=== PATIENT | male | born 1975 | race Caucasian/White ===

== ENCOUNTER 2020-07-02 17:47 | Inpatient (IN) ==
[2020-07-02] MEDS ORDERED: ONDANSETRON 4 MG/2 ML VIAL IV ONE (19:16)
[2020-07-02] MEDS ORDERED: 0.9 % SODIUM CHLORIDE 2,000 ML IV ONE (19:16)
[2020-07-02] MEDS: HYDROmorphone 0.5 MG/0.5 ML SYRINGE IV PRN ×3 (19:42→22:44)
[2020-07-02 20:42] LABS: Basophils # (Auto) 0.04 K/mcL (0.00-0.30); Basophils % (Auto) 0.5 % (0.0-2.0); Eosinophils # (Auto) 0.17 K/mcL (0.00-0.70); Eosinophils % (Auto) 2.1 % (0.0-7.0); Granulocytes % (Auto) 54.7 % (38.0-78.0); Hematocrit 44.1 % (40.1-51.0); Hemoglobin 15.6 g/dL (13.7-17.5); Lymphocytes # (Auto) 2.59 K/mcL (1.50-4.80); Lymphocytes % (Auto) 31.9 % (15.5-49.0); Mean Cell Volume 84.2 fL (80.0-100.0); Mean Corpuscular HGB Conc 35.4 g/dL (31.0-36.0); Mean Platelet Volume 10.5 fL (7.4-10.4); Monocytes # (Auto) 0.88 K/mcL (0.10-0.90); Monocytes % (Auto) 10.8 % (1.0-12.0); Platelet Count 211 K/mcL (140-440); RBC 5.24 M/mcL (4.63-6.08); Red Cell Distribution Width 13.4 % (11.5-14.5); WBC 8.1 K/mcL (4.50-11.00)
[2020-07-02 21:07] LABS: ALT/SGPT 36 U/l (0-40); AST/SGOT 17 U/l (0-37); Albumin/Globulin Ratio 1.6 (1.0-2.3); Alkaline Phosphatase 44 U/L (39-117); Bilirubin,Total 0.3 mg/dL (0.0-1.0); Blood Urea Nitrogen 11 mg/dl (6-20); Calcium 9.1 mg/dl (8.6-10.4); Carbon Dioxide 24 mmol/L (22-30); Chloride 104 mmol/L (96-108); Globulin 2.5 gm/dL (2.2-3.7); Glomerular Filtration Rate 103; Glucose 89 mg/dL (70-105)
[2020-07-02] MEDS ORDERED: 0.9 % SODIUM CHLORIDE 1,000 ML IV ONE (21:39)
--- NOTE | 2020-07-02 22:12 | Emergency Department Note ---
Abdominal Pain HPI General Chief Complaint: Abdominal Pain Stated Complaint: Generalized Abdominal Pain Time Seen by Provider: 07/02/20 18:44 Source: patient Mode of arrival: ambulatory Limitations: no limitations History of Present Illness HPI Narrative: Narrative: This pleasant 44-year-old gentleman comes to the emergency room after being seen yesterday by Dr. whipple here and diagnosed with a mild pancreatitis. He was not nauseated or vomiting and his pain seemed to be controllable. He was able to take fluids at that time. He reports that he was doing better, pain seemed to go away but then came back around noon with an increasing severity of pain. He has had significant nausea but no emesis. He rates his pain 06/11. He only drinks alcohol but rarely his last drink was 2 weeks ago. Related Data Home Medications Medication Instructions Recorded Confirmed atorvastatin 10 mg PO DAILY 07/01/20 07/02/20 cetirizine 10 mg PO DAILY 07/01/20 07/02/20 gabapentin 300 mg capsule 300 mg PO QDAY PRN 07/01/20 07/02/20 hydrochlorothiazide 25 mg PO DAILY 07/01/20 07/02/20 lisinopril 40 mg PO DAILY 07/01/20 07/02/20 omeprazole 20 mg capsule,delayed 20 mg PO QDAY 07/01/20 07/02/20 release Previous Rx's Medication Instructions Recorded oxycodone [Roxicodone] 5 mg PO Q4H PRN #20 tab 07/01/20 Allergies Allergy/AdvReac Type Severity Reaction Status Date / Time hydrocodone Allergy Intermediate Nausea Verified 07/02/20 19:41 meperidine [From Demerol] AdvReac Intermediate Nausea Verified 07/02/20 19:41 From DEMEROL Allergy Unknown Vomiting Uncoded 07/02/20 19:41 Review of Systems ROS ROS Narrative: N arrative: No fevers or chills. No sweats No chest pain A little bit of shortness of breath due to the pain. His diarrhea only continued with one episode today the first time this morning and has not continued but he also has been on some hydrocodone every 4 hours. Was seen for diarrhea at [facility] at [address] [place] [address]. C. difficile test pending. He reports that his pain is worse than yesterday now. His last hydrocodone was a 5 mg around 3:30 PM. Pain is all over the upper half of his abdomen. Sitting up seems to worsen the pain. He is only eaten a muffin today. He has tried to drink a lot of water but he has not urinated that he recalls ev en once today. He does not take any NSAIDs. He did take Excedrin a couple this morning due to headache. He is not on any blood thinners. Has no history of kidney disease. [facility] Narrative Patient History Narrative: Narrative: Medical/Surgical/Family History All Active Problems (Updated 07/02/20 @ 22:29 by Ming Saleh DO) Acute pancreatitis (Acute) Abdominal pain (Acute) Pancreatitis (Acute) Gastroenteritis (Acute) Diarrhea (Acute) Encounter for laboratory testing for COVID-19 virus (Acute) Medical History (Updated 07/02/20 @ 22:29 by Ming Saleh DO) Diarrhea (Acute) Encounter for laboratory testing for COVID-19 virus (Acute) GERD (gastroesophageal reflux disease) (Acute) Hyperlipidemia (Acute) Hypertension (Acute) Social History Smoking Status: Current every day smoker Alcohol Intake Frequency: a few times a month Exam Narrative Narrative: Narrative: General Limitations: no limitations General appearance: Present alert, in distress (Seems to be in quite a bit of discomfort. Laying on his side with some mild consternation. It is not acute but not comfortable.) and nontoxic Head Head: Present atraumatic and normocephalic Eye Eye: Present EOMI Neck Neck: Present trachea midline; Absent lymphadenopathy and thyromegaly Chest Chest: Present symmetric chest wall rise Respiratory Respiratory: Present normal lung sounds bilaterally; Absent respiratory distress, wheezes, stridor, accessory muscle use and prolonged expiratory phase Cardiovascular Cardiovascular: Present regular rate and normal rhythm; Absent tachycardia, systolic murmur and diastolic murmur Adbominal Abdominal: Present soft and tenderness (Moderate-severe epigastric and to the right of the umbilicus.); Absent distention, guarding, rebound, rigidity, organomegaly and mass Extremities Extremities: Present other (Moves all extremities easily and well.) Neurological Neurological: Present alert and oriented X3 Psychiatric Psychiatric: Present serious; Absent depressed, agitated, anxious and poor eye contact Skin Skin: Present warm (WNL) and dry Course Vital Signs Vital signs: Vital Signs Temperature 98.1 F 07/02/20 17:48 Pulse Rate 80 07/02/20 17:48 Respiratory Rate 28 H 07/02/20 17:48 Blood Pressure 150/99 07/02/20 17:48 Pulse Oximetry (%) 97 07/02/20 17:48 Temperature 98.1 F 07/02/20 17:48 Pulse Rate 74 07/02/20 22:03 Respiratory Rate 16 07/02/20 22:03 Blood Pressure 138/80 07/02/20 22:03 Pulse Oximetry (%) 98 07/02/20 22:03 [facility] MDM Narrative Medical decision making narrative: Narrative: Probable acute pancreatitis failing outpatient management of pain. See history and physical by Dr. Whipple from yesterday. (There were 2 charts for the same patient and hopefully these are now combined). Will repeat labs. Will discuss with hospitalist admission for pain control. Labs returned again without an elevation of white count or lactic acid. Potassium slightly low at 3.3. Kidneys are functioning well with BUN 11, creatinine 0.9. Therefore, his admission is primarily for pain control and continued hydration. I will discuss with the hospitalist. I discussed his care with Dr. Contreras, with agreement for patient to be admitted, observation. C. difficile test on stool was found to be negative. 10:20 PM - I had omitted doing an ultrasound. CT was negative but this was did not be as accurate as an ultrasound for looking for cholelithiasis or choledocholithiasis. This is ordered. Lab Data Result diagrams: 07/02/20 19:40 07/02/20 19:40 Labs: Lab Results 07/02/20 07/02/20 07/02/20 Range/Units 19:39 19:40 19:40 WBC 8.1 (4.50-11.00) K/mcL RBC 5.24 (4.63-6.08) M/mcL Hgb 15.6 (13.7-17.5) g/dL Hct 44.1 (40.1-51.0) % MCV 84.2 (80.0-100.0) fL MCH 29.8 (26.0-34.0) pg MCHC 35.4 (31.0-36.0) g/dL RDW 13.4 (11.5-14.5) % Plt Count 211 (140-440) K/mcL MPV 10.5 H (7.4-10.4) fL Gran % 54.7 (38.0-78.0) % Lymph % (Auto) 31.9 (15.5-49.0) % [place] % (Auto) 10.8 (1.0-12.0) % Eos % (Auto) 2.1 (0.0-7.0) % Baso % (Auto) 0.5 (0.0-2.0) % Gran # 4.45 (1.80-8.00) K/mcL Lymph # (Auto) 2.59 (1.50-4.80) K/mcL [place] # (Auto) 0.88 (0.10-0.90) K/mcL Eos # (Auto) 0.17 (0.00-0.70) K/mcL Baso # (Auto) 0.04 (0.00-0.30) K/mcL VBG Lactic Acid 0.8 (0.5-2.0) mmol/L Sodium 140 (133-145) mmol/L Potassium 3.3 (3.3-5.1) mmol/L Chloride 104 (96-108) mmol/L Carbon Dioxide 24 (22-30) mmol/L Anion Gap 12.0 (8-16) BUN 11 (6-20) mg/dl Creatinine 0.9 (0.7-1.2) mg/dl GFR Calculation 103 Glucose 89 (70-105) mg/dL Calcium 9.1 (8.6-10.4) mg/dl Total Bilirubin 0.3 (0.0-1.0) mg/dL AST 17 (0-37) U/l ALT 36 (0-40) U/l Alkaline Phosphatase 44 (39-117) U/L C-Reactive Protein 1.0 H (0.0-0.8) mg/dl Total Protein 6.5 (5.9-8.4) gm/dL Albumin 4.0 (3.2-5.2) gm/dL Globulin 2.5 (2.2-3.7) gm/dL Albumin/Globulin Ratio 1.6 (1.0-2.3) Lipase 227 H (7-60) U/L Discharge Plan Patient/Caregiver Discharge Instructions Pt seen by DEPUTY SHERIFF CUSTODY/PA only: No Clinical Impression: Acute pancreatitis, Abdominal pain Patient Disposition: Xfer As Outpt/Obs ([facility]) Follow up with: No,PCP [Primary Care Provider] - Prescriptions: No Action omeprazole 20 mg capsule,delayed release(DR/EC) 20 mg PO QDAY RF: 0 gabapentin 300 mg capsule 300 mg PO QDAY PRN (Reason: Pain) RF: 0 cetirizine 10 mg tablet 10 mg PO DAILY RF: 0 atorvastatin 10 mg tablet 10 mg PO DAILY RF: 0 hydrochlorothiazide 25 mg tablet 25 mg PO DAILY RF: 0 lisinopril 40 mg tablet 40 mg PO DAILY RF: 0 oxycodone [Roxicodone] 5 mg tablet 5 mg PO Q4H PRN (Reason: pain) Qty: 20 RF: 0
[2020-07-02] MEDS ORDERED: ONDANSETRON 4 MG/2 ML VIAL IV PRN ×2 (22:37→23:38)
[2020-07-02] MEDS ORDERED: morphine 4 MG/ML VIAL IV PRN ×2 (22:37→23:38)
[2020-07-02] MEDS ORDERED: traMADol 50 MG TABLET PO PRN ×2 (22:42→23:38)
[2020-07-02] MEDS ORDERED: 0.9 % SODIUM CHLORIDE 1,000 ML IV SCH (22:45)
--- NOTE | 2020-07-02 23:00 | Internal Med History&Physical ---
HPI History of Present Illness Patient information: Note initiated : 07/02/20 at 10:46 pm Service Date, if different from initiated Date: [] Patient: Jeremy Paul a 44 y/o M admitted on for Generalized Abdominal Pain. Chief Complaint: [] History of present illness: Mr. Paul is a 44 year old M with a past medical history of hypertension and current smoker who presented to the ER due to abdominal pain for 2 days. As per patient, patient started to have abdominal pain yesterday morning associated with nausea and vomiting. Patient went to the ER yesterday evening. Lipase was 248. CT abdomen showed mild pancreatitis. He was advised to drink more fluid and discharged home with pain medication. His abdominal pain was initially improved. However, his abdominal pain is becoming worse today. The pain is mainly located to epigastric area, constant and 9 out of 10. So he went back to the ER this evening. Lipase 227 today. When I saw this patient in the ER, other than the symptoms mentioned above, he also complains of having diarrhea for 9 days. He has about 20 bowel movements a day with watery stool. Did not see blood in the stool. Otherwise patient denies chest pain, shortness breath, fever, chills, or dysuria. Review of Systems All systems: reviewed and no additional remarkable complaints except as stated PFSH PFSH All Active Problems Acute pancreatitis (Acute) Abdominal pain (Acute) Pancreatitis (Acute) Gastroenteritis (Acute) Diarrhea (Acute) Encounter for laboratory testing for COVID-19 virus (Acute) Medical History Diarrhea (Acute) Encounter for laboratory testing for COVID-19 virus (Acute) GERD (gastroesophageal reflux disease) (Acute) Hyperlipidemia (Acute) Hypertension (Acute) Social History smoking status: Current every day smoker alcohol intake frequency: a few times a month MEDS/ALLERGIES Home Medications and Allergies Home Medications Medication Instructions Recorded Confirmed Type atorvastatin 10 mg PO DAILY 07/01/20 07/02/20 History cetirizine 10 mg PO DAILY 07/01/20 07/02/20 History gabapentin 300 mg capsule 300 mg PO QDAY PRN 07/01/20 07/02/20 History hydrochlorothiazide 25 mg PO DAILY 07/01/20 07/02/20 History lisinopril 40 mg PO DAILY 07/01/20 07/02/20 History omeprazole 20 mg capsule,delayed 20 mg PO QDAY 07/01/20 07/02/20 History release oxycodone [Roxicodone] 5 mg PO Q4H PRN #20 tab 07/01/20 07/02/20 Rx Allergies Allergy/AdvReac Type Severity Reaction Status Date / Time hydrocodone Allergy Intermediate Nausea Verified 07/02/20 19:41 meperidine [From Demerol] AdvReac Intermediate Nausea Verified 07/02/20 19:41 From DEMEROL Allergy Unknown Vomiting Uncoded 07/02/20 19:41 EXAM Constitutional Vitals: Temp Pulse Resp BP Pulse Ox 98.1 F 79 20 141/81 98 07/02/20 17:48 07/02/20 22:41 07/02/20 22:41 07/02/20 22:41 07/02/20 22:41 Additional findings Additional findings: General - No acute distress Eyes - PERRLA, EOM intact ENT no rhinorrhea, no noticeable or palpable swelling, no redness or rash around throat or on face Neck supple, no JVD, no thyromegaly Respiratory: Lungs -clear, no wheezing or crackles. Cardiovascular - RRR no m/r/g, GI - Normal bowel sounds, no distended, soft. Mildly to moderately diffuse tenderness especially in the epigastric area. Extremeties - No edema, cyanosis or clubbing Hemo/lymphatic/immune no lymphadenopathy Neurological Alert and oriented x 3, no focal neurological deficits. Psychiatry flat affect DATA Data Completed and Pending Labs: Labs from last 24 hours 07/02/20 07/02/20 07/02/20 19:40 19:40 19:39 WBC 8.1 RBC 5.24 Hgb 15.6 Hct 44.1 MCV 84.2 MCH 29.8 MCHC 35.4 RDW 13.4 Plt Count 211 MPV 10.5 H Gran % 54.7 Lymph % (Auto) 31.9 [place] % (Auto) 10.8 Eos % (Auto) 2.1 Baso % (Auto) 0.5 Gran # 4.45 Lymph # (Auto) 2.59 [place] # (Auto) 0.88 Eos # (Auto) 0.17 Baso # (Auto) 0.04 VBG Lactic Acid 0.8 Sodium 140 Potassium 3.3 Chloride 104 Carbon Dioxide 24 Anion Gap 12.0 BUN 11 Creatinine 0.9 GFR Calculation 103 Glucose 89 Calcium 9.1 Total Bilirubin 0.3 AST 17 ALT 36 Alkaline Phosphatase 44 C-Reactive Protein 1.0 H Total Protein 6.5 Albumin 4.0 Globulin 2.5 Albumin/Globulin Ratio 1.6 Lipase 227 H A/P Narrative A/P Narrative: 1. Acute pancreatitis CT abdomen showed Simple pancreatitis confined to the head and uncinate process. Etiology unknown Denies regularly drinking alcohol, no gallstone. Lipid panel Repeat lipase in the morning N.p.o. IV fluids Pain management including IV morphine HCTZ is on hold 2. Dehydration IV fluid 3. Acute gastroenteritis, C diff negative Stool culture 4. HTN Continue lisinopril 40 mg daily HCTZ is on hold. Monitor blood pressure 5. Tobacco dependence Smoking cessation counseling Nicotine patch if necessary 6. DVT prophylaxis: Lovenox 7. 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
[2020-07-03] MEDS: 0.9 % SODIUM CHLORIDE 1,000 ML IV SCH ×3 (00:07→20:31)
[2020-07-03] MEDS ORDERED: morphine 4 MG/ML VIAL ONE (00:08)
[2020-07-03] MEDS: HYDROmorphone 0.5 MG/0.5 ML SYRINGE IV PRN ×4 (02:10→10:24)
[2020-07-03] MEDS ORDERED: HYDROmorphone 0.5 MG/0.5 ML SYRINGE ONE ×2 (02:15→05:00)
--- NOTE | 2020-07-03 03:46 | Ultrasound Report ---
CLINICAL INFORMATION: pancreatitis; cholelithiasis / choledocholith ?? COMPARISON: None. FINDINGS: Liver is moderately enlarged with a vertical dimension 21 cm at mid clavicular line. Echotexture is increased compatible with fatty change. No focal hepatic lesions. The gallbladder and bile ducts are normal: CBD is 5 mm. The right kidney is normal spanning 12 x 6 cm. Pancreas is grossly normal. IMPRESSION: Moderate hepatomegaly with elevated echotexture most compatible fatty change. Interpreted and Authenticated by: Marbin Smith 07/03/20
[2020-07-03] MEDS: 0.9 % SODIUM CHLORIDE 10 ML SYRINGE IV SCH ×3 (05:15→20:32)
[2020-07-03] MEDS ORDERED: 0.9 % SODIUM CHLORIDE 10 ML SYRINGE IV SCH (06:00)
[2020-07-03] MEDS ORDERED: ATORVASTATIN 10 MG TABLET PO SCH (09:00)
[2020-07-03] MEDS ORDERED: NON FORMULARY MEDICATION 1 DOSE MISCELL (Lisinopril 40 MG) PO SCH (09:00)
[2020-07-03] MEDS ORDERED: ENOXAPARIN 40 MG/0.4 ML SYRINGE SQ SCH (09:00)
[2020-07-03] MEDS ORDERED: OMEPRAZOLE 20 MG CAPSULE PO SCH ×2 (09:00)
[2020-07-03] MEDS: LISINOPRIL 20 MG TABLET PO SCH (09:53)
[2020-07-03] MEDS: ATORVASTATIN 10 MG TABLET PO SCH (09:55)
[2020-07-03] MEDS: ENOXAPARIN 40 MG/0.4 ML SYRINGE SQ SCH (09:56)
[2020-07-03] MEDS ORDERED: HYDROmorphone 1 MG/ML SYRINGE IV PRN (11:44)
[2020-07-03] MEDS ORDERED: IOPAMIDOL 100 ML BOTTLE IV ONE (12:56)
--- NOTE | 2020-07-03 13:23 | Cat Scan Report ---
CLINICAL INFORMATION: Abdominal pain COMPARISON: Pelvic CT 07/01/2020 TECHNIQUE: Following enteric contrast, 80 cc of Isovue-370 were injected intravenously, and 60 seconds later, 0.625 mm helical slices were obtained from the mid heart through the subtrochanteric regions. Following reconstruction, 2.5 mm sagittal, coronal and axial reformatted images were processed and reviewed at bone, lung and soft tissue windows. Five minutes later, 0.625 mm helical slices were obtained from the mid heart through the kidneys and viewed at soft tissue windows.The exam was performed using radiation dose optimization techniques including, but not limited to, automated exposure control, adjustment of the mA and/or kV according to patient size and use of iterative reconstruction technique. FINDINGS: Lung bases show no abnormality - no effusion. The visualized heart is normal.6 Abdominal images show the gallbladder and bile ducts are normal: CBD is 5 mm. Both kidneys, adrenal glands, spleen and aorta are normal in size configuration and attenuation without focal lesion. The celiac SMA renal and iliac arteries are patent. Is a 50% stenosis of the WM. Inflammation in the peripancreatic fat has increased compatible with progression of simple pancreatitis. The pancreatic duct is normal caliber - 2 mm. Pelvic images show prostate seminal, vesicles and urinary bladder are normal. Sigmoid diverticuli appreciated, but no evidence of diverticulitis. The remaining colon, appendix, small bowel and stomach are normal. Bone windows show no osseous abnormality. IMPRESSION: 1. Simple pancreatitis - worsening. No evidence of necrosis, hemorrhage or other complication. 2. Mild sigmoid diverticulosis - no evidence of diverticulitis. 3. Greater than 50% stenosis of the WM origin. Celiac and SMA are widely patent 1 Interpreted and Authenticated by: Marbin Smith 07/03/20
--- NOTE | 2020-07-03 15:30 | Internal Med Progress Note ---
SUBJECTIVE Subjective Patient information: Note initiated : 07/03/20 at 3:20 pm Service Date, if different from initiated Date: [] Patient: Jeremy Paul 44 y/o M admitted on 07/02/20 for Generalized Abdominal Pain. Chief Complaint: [] Interval history: History of present illness: Mr. Paul is a 44 year old M with a past medical history of hypertension and current smoker who presented to the ER due to abdominal pain for 2 days. As per patient, patient started to have abdominal pain yesterday morning associated with nausea and vomiting. Patient went to the ER yesterday evening. Lipase was 248. CT abdomen showed mild pancreatitis. He was advised to drink more fluid and discharged home with pain medication. His abdominal pain was initially improved. However, his abdominal pain is becoming worse today. The pain is mainly located to epigastric area, constant and 9 out of 10. So he went back to the ER this evening. Lipase 227 today. When I saw this patient in the ER, other than the symptoms mentioned above, he also complains of having diarrhea for 9 days. He has about 20 bowel movements a day with watery stool. Did not see blood in the stool. Otherwise patient denies chest pain, shortness breath, fever, chills, or dysuria. 07/03 Today pt complains of more abdominal pain. still has N/V/D which seems to be the same as they were yesterday. Vital signs are stable. C diff negative Repeat CT abd and increased pain meds. 07/04 Constitutional Vitals: Vital Signs Temp Pulse Resp BP Pulse Ox 98.7 F 73 20 145/97 92 07/03/20 11:35 07/03/20 11:35 07/03/20 11:35 07/03/20 11:35 07/03/20 11:35 Period Temp Pulse Resp BP Sys/Devi Pulse Ox Last 24 Hr 97.9 F-98.7 F 68-85 16-28 127-156/78-102 92-98 Intake and Output 07/03/20 07/03/20 07/03/20 05:59 13:59 21:59 Intake Total 1000 1000 Output Total 225 600 Balance 775 400 Weight 133.402 kg 133.402 kg Patient Weight 07/04/20 05:59 Weight 133.402 kg Intake & Output: Intake & Output 07/03/20 07/03/20 07/03/20 05:59 13:59 21:59 Intake Total 1000 1000 Output Total 225 600 Balance 775 400 Weight 133.402 kg 133.402 kg Intake: IV 1000 1000 Sodium Chloride 0.9% 1,000 ml @ 1000 1000 100 mls/hr IV .Q10H [facility] Rx#: [id number] Oral 0 Output: Void Amount 225 600 Other: Urine Appearance Clear Clear Urine Color Dark Yellow Dark Yellow Urine Odor Normal Exam: General: Alert, Awake, No acute Distress Eyes/N/T: EOMI, Head/Neck: neck supple, CV: RRR, No murmurs, normal s1/s2 Pulm: Clear b/l, no wheezing/rhonchi/rales Abd: soft, generalized tenderness specially epigastric, +BS x4 Ext: no clubbing/cyanosis/edema Neuro: Alert, no focal deficits, moves all extremities, Skin: warm/dry OBJ DATA Labs CBC & Chem 7: 07/03/20 05:05 07/03/20 05:00 Labs: Abnormal Lab Results 07/02/20 07/02/20 19:40 19:40 MPV 10.5 H C-Reactive Protein 1.0 H Lipase 227 H Meds: Medications Atorvastatin Calcium (Lipitor) 10 mg PO DAILY [facility] Last Admin: 07/03/20 09:55 Dose: Not Given Documented by: Enoxaparin Sodium (Lovenox) 40 mg SQ DAILY [facility] Last Admin: 07/03/20 09:56 Dose: 40 mg Documented by: Hydromorphone HCl (Dilaudid) 1 mg IV Q4HP PRN; Protocol PRN Reason: Per Pain Protocol Last Admin: 07/03/20 11:55 Dose: 1 mg Documented by: Sodium Chloride (Sodium Chloride 0.9%) 1,000 mls @ 100 mls/hr IV .Q10H [facility] Last Admin: 07/03/20 10:16 Dose: 100 mls/hr Documented by: Lisinopril (Zestril) 40 mg PO DAILY [facility] Last Admin: 07/03/20 09:53 Dose: 40 mg Documented by: Omeprazole (Prilosec) 20 mg PO QDAY [facility] Last Admin: 07/03/20 09:53 Dose: 20 mg Documented by: Ondansetron HCl (Zofran) 4 mg IV Q6HP PRN PRN Reason: Nausea And Vomiting Last Admin: 07/03/20 10:17 Dose: 4 mg Documented by: Sodium Chloride (Saline Flush) 10 ml IV Q8 [facility] Last Admin: 07/03/20 13:01 Dose: Not Given Documented by: Tramadol HCl (Ultram) 50 mg PO Q6HP PRN; Protocol PRN Reason: Pain Last Admin: 07/03/20 14:55 Dose: 50 mg Documented by: A/P Narrative A/P Narrative: A: *Acute pancreatitis: Etiology unknown, smoking a risk factor. prilosec class 1b risk -GB unremarkable, denies recent etoh -CT with pancreatitis, no necrosis or hemorrhage or cyst Denies regularly drinking alcohol, no gallstone. 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
[2020-07-03 15:54] LABS: Basophils # (Auto) 0.04 K/mcL (0.00-0.30); Basophils % (Auto) 0.5 % (0.0-2.0); Eosinophils # (Auto) 0.15 K/mcL (0.00-0.70); Eosinophils % (Auto) 1.9 % (0.0-7.0); Granulocytes % (Auto) 53.8 % (38.0-78.0); Hematocrit 41.5 % (40.1-51.0); Hemoglobin 14.1 g/dL (13.7-17.5); Lymphocytes # (Auto) 2.65 K/mcL (1.50-4.80); Lymphocytes % (Auto) 33.6 % (15.5-49.0); Mean Cell Volume 87.4 fL (80.0-100.0); Mean Platelet Volume 10.8 fL (7.4-10.4); Monocytes % (Auto) 10.2 % (1.0-12.0); Platelet Count 200 K/mcL (140-440); RBC 4.75 M/mcL (4.63-6.08); Red Cell Distribution Width 13.9 % (11.5-14.5); WBC 7.9 K/mcL (4.50-11.00)
[2020-07-03 16:16] LABS: proBNP 75.3 pg/ml (0-125)
[2020-07-03 16:40] LABS: ALT/SGPT 44 U/l (0-40); AST/SGOT 27 U/l (0-37); Albumin 3.4 gm/dL (3.2-5.2); Albumin/Globulin Ratio 1.5 (1.0-2.3); Alkaline Phosphatase 36 U/L (39-117); Bilirubin,Total 0.4 mg/dL (0.0-1.0); Blood Urea Nitrogen 10 mg/dl (6-20); Carbon Dioxide 21 mmol/L (22-30); Globulin 2.3 gm/dL (2.2-3.7); Glomerular Filtration Rate 108; Glucose 86 mg/dL (70-105); Triglycerides 93 mg/dl (<150)
[2020-07-03 16:44] LABS: Chloride 109 mmol/L (96-108); HDL Cholesterol 24 mg/dl (>40); LDL Cholesterol,Calculated 57 mg/dl (SEE CHART); Non-HDL Cholesterol 75 (LDL TARGET+30)
[2020-07-03] MEDS: HYDROmorphone 1 MG/ML SYRINGE IV PRN ×3 (16:45→23:05)
--- NOTE | 2020-07-03 20:14 | Internal Med Progress Note ---
SUBJECTIVE Subjective Patient information: Note initiated : 07/03/20 at 8:13 pm Service Date, if different from initiated Date: [] Patient: Jeremy Paul 44 y/o M admitted on 07/02/20 for Generalized Abdominal Pain. Chief Complaint: [] Mr. Paul is a 44 year old M with a past medical history of hypertension and current smoker who presented to the ER due to abdominal pain for 2 days. As per patient, patient started to have abdominal pain yesterday morning associated with nausea and vomiting. Patient went to the ER yesterday evening. Lipase was 248. CT abdomen showed mild pancreatitis. He was advised to drink more fluid and discharged home with pain medication. His abdominal pain was initially improved. However, his abdominal pain is becoming worse today. The pain is mainly located to epigastric area, constant and 9 out of 10. So he went back to the ER this evening. Lipase 227 today. When I saw this patient in the ER, other than the symptoms mentioned above, he also complains of having diarrhea for 9 days. He has about 20 bowel movements a day with watery stool. Did not see blood in the stool. Otherwise patient denies chest pain, shortness breath, fever, chills, or dysuria. 07/03 Today pt complains of more abdominal pain. still has N/V/D which seems to be the same as they were yesterday. Vital signs are stable. C diff negative Repeat CT abd and increased pain meds. Review of Systems All systems: reviewed and no additional remarkable complaints except as stated Constitutional Vitals: Vital Signs Temp Pulse Resp BP Pulse Ox 98.5 F 77 18 126/76 96 07/03/20 16:00 07/03/20 16:00 07/03/20 16:00 07/03/20 16:00 07/03/20 16:00 Period Temp Pulse Resp BP Sys/Devi Pulse Ox Last 24 Hr 97.9 F-98.7 F 68-85 16-24 126-156/76-102 92-98 Intake and Output 07/03/20 07/03/20 07/03/20 05:59 13:59 21:59 Intake Total 1000 1000 Output Total 225 600 500 Balance 775 400 -500 Weight 133.402 kg 133.402 kg Patient Weight 07/04/20 05:59 Weight 133.402 kg Intake & Output: Intake & Output 07/03/20 07/03/20 07/03/20 05:59 13:59 21:59 Intake Total 1000 1000 Output Total 225 600 500 Balance 775 400 -500 Weight 133.402 kg 133.402 kg Intake: IV 1000 1000 Sodium Chloride 0.9% 1,000 ml @ 1000 1000 100 mls/hr IV .Q10H [facility] Rx#: [id number] Oral 0 Output: Void Amount 225 600 500 Other: Urine Appearance Clear Clear Clear Urine Color Dark Yellow Dark Yellow Bright Yellow Urine Odor Normal Normal # Voids 2 Additional findings Additional findings: General - No acute distress Eyes - PERRLA, EOM intact ENT no rhinorrhea, no noticeable or palpable swelling, no redness or rash around throat or on face Neck supple, no JVD, no thyromegaly Respiratory: Lungs -clear, no wheezing or crackles. Cardiovascular - RRR no m/r/g, GI - Normal bowel sounds, no distended, soft. moderately diffuse tenderness especially in the epigastric area. Extremeties - No edema, cyanosis or clubbing Hemo/lymphatic/immune no lymphadenopathy Neurological Alert and oriented x 3, no focal neurological deficits. Psychiatry flat affect OBJ DATA Labs CBC & Chem 7: 07/03/20 05:05 07/03/20 05:00 Labs: Abnormal Lab Results 07/03/20 07/03/20 07/02/20 05:05 05:00 19:40 MPV 10.8 H Chloride 109 H Carbon Dioxide 21 L Calcium 8.0 L ALT 44 H Alkaline Phosphatase 36 L C-Reactive Protein 1.0 H Total Protein 5.7 L HDL Cholesterol 24 L Lipase 277 H 227 H 07/02/20 19:40 MPV 10.5 H Chloride Carbon Dioxide Calcium ALT Alkaline Phosphatase C-Reactive Protein Total Protein HDL Cholesterol Lipase Meds: Medications Atorvastatin Calcium (Lipitor) 10 mg PO DAILY [facility] Last Admin: 07/03/20 09:55 Dose: Not Given Documented by: Enoxaparin Sodium (Lovenox) 40 mg SQ DAILY [facility] Last Admin: 07/03/20 09:56 Dose: 40 mg Documented by: Famotidine (Pepcid) 20 mg PO HS [facility] Hydromorphone HCl (Dilaudid) 0.5 - 1 mg IV Q2HP PRN; Protocol PRN Reason: Per Pain Protocol Last Admin: 07/03/20 19:34 Dose: 1 mg Documented by: Sodium Chloride (Sodium Chloride 0.9%) 1,000 mls @ 100 mls/hr IV .Q10H [facility] Last Admin: 07/03/20 10:16 Dose: 100 mls/hr Documented by: Lisinopril (Zestril) 40 mg PO DAILY [facility] Last Admin: 07/03/20 09:53 Dose: 40 mg Documented by: Ondansetron HCl (Zofran) 4 mg IV Q6HP PRN PRN Reason: Nausea And Vomiting Last Admin: 07/03/20 10:17 Dose: 4 mg Documented by: Sodium Chloride (Saline Flush) 10 ml IV Q8 [facility] Last Admin: 07/03/20 13:01 Dose: Not Given Documented by: Tramadol HCl (Ultram) 50 mg PO Q6HP PRN; Protocol PRN Reason: Pain Last Admin: 07/03/20 14:55 Dose: 50 mg Documented by: A/P Narrative A/P Narrative: 1. Acute pancreatitis CT abdomen showed Simple pancreatitis confined to the head and uncinate process. Etiology unknown Denies regularly drinking alcohol, no gallstone. Triglyceride < 150 Repeat lipase in the morning N.p.o. IV fluids Pain management including IV morphine HCTZ is on hold update: more abdoinal pain today - repeat CT abd 2. Dehydration IV fluid 3. Acute gastroenteritis, C diff negative Stool culture 4. HTN Continue lisinopril 40 mg daily HCTZ is on hold. Monitor blood pressure 5. Tobacco dependence Smoking cessation counseling Nicotine patch if necessary 6. DVT prophylaxis: Lovenox 7. CODE STATUS: English Division Chair Spent With Patient Time: Total time spent is greater than 50% in coordination of care (as documented) at patient's floor/unit and/or counseling patient: QUALITY Stroke Symptom Onset Unknown: No VTE Deep Vein Thrombosis/Pulmonary Embolism Present on Admission: No
[2020-07-03] MEDS ORDERED: FAMOTIDINE 20 MG TABLET PO SCH (21:00)
[2020-07-04] MEDS: HYDROmorphone 1 MG/ML SYRINGE IV PRN (02:03)
[2020-07-04] MEDS: 0.9 % SODIUM CHLORIDE 10 ML SYRINGE IV SCH ×2 (05:47→13:29)
[2020-07-04] MEDS: 0.9 % SODIUM CHLORIDE 1,000 ML IV SCH (05:48)
[2020-07-04 06:44] LABS: Basophils # (Auto) 0.03 K/mcL (0.00-0.30); Basophils % (Auto) 0.4 % (0.0-2.0); Eosinophils # (Auto) 0.11 K/mcL (0.00-0.70); Eosinophils % (Auto) 1.5 % (0.0-7.0); Granulocytes % (Auto) 60.7 % (38.0-78.0); Hematocrit 38.6 % (40.1-51.0); Hemoglobin 13.4 g/dL (13.7-17.5); Lymphocytes # (Auto) 2.03 K/mcL (1.50-4.80); Lymphocytes % (Auto) 27.7 % (15.5-49.0); Mean Cell Volume 84.5 fL (80.0-100.0); Mean Corpuscular HGB Conc 34.7 g/dL (31.0-36.0); Mean Platelet Volume 10.4 fL (7.4-10.4); Monocytes # (Auto) 0.71 K/mcL (0.10-0.90); Monocytes % (Auto) 9.7 % (1.0-12.0); Platelet Count 192 K/mcL (140-440); RBC 4.57 M/mcL (4.63-6.08); WBC 7.3 K/mcL (4.50-11.00)
--- NOTE | 2020-07-04 07:30 | Internal Med Progress Note ---
SUBJECTIVE Subjective Patient information: Note initiated : 07/04/20 at 7:29 am Service Date, if different from initiated Date: [] Patient: Jeremy Paul 44 y/o M admitted on 07/02/20 for Generalized Abdominal Pain. Chief Complaint: [] Interval history: History of present illness: Mr. Paul is a 44 year old M with a past medical history of hypertension and current smoker who presented to the ER due to abdominal pain for 2 days. As per patient, patient started to have abdominal pain yesterday morning associated with nausea and vomiting. Patient went to the ER yesterday evening. Lipase was 248. CT abdomen showed mild pancreatitis. He was advised to drink more fluid and discharged home with pain medication. His abdominal pain was initially improved. However, his abdominal pain is becoming worse today. The pain is mainly located to epigastric area, constant and 9 out of 10. So he went back to the ER this evening. Lipase 227 today. When I saw this patient in the ER, other than the symptoms mentioned above, he also complains of having diarrhea for 9 days. He has about 20 bowel movements a day with watery stool. Did not see blood in the stool. Otherwise patient denies chest pain, shortness breath, fever, chills, or dysuria. 07/03 Today pt complains of more abdominal pain. still has N/V/D which seems to be the same as they were yesterday. Vital signs are stable. C diff negative Repeat CT abd and increased pain meds. 07/04 Doing better today. Hungry. No new complaints. Abdominal pain improved. Review of Systems: denies headache/fever/chills/nausea/vomiting/chest pain/cough/dyspnea/diarrhea. Otherwise see above. Constitutional Vitals: Vital Signs Temp Pulse Resp BP Pulse Ox 99.4 F H 80 20 122/78 95 07/04/20 06:47 07/04/20 06:47 07/04/20 06:47 07/04/20 06:47 07/04/20 06:47 Period Temp Pulse Resp BP Sys/Devi Pulse Ox Last 24 Hr 98.2 F-99.4 F 69-81 16-20 118-147/76-97 92-96 Intake and Output 07/03/20 07/04/20 07/04/20 21:59 05:59 13:59 Intake Total 1000 928 Output Total 975 650 Balance 25 278 Weight 134.263 kg Intake & Output: Intake & Output 07/03/20 07/04/20 07/04/20 21:59 05:59 13:59 Intake Total 1000 928 Output Total 975 650 Balance 25 278 Weight 134.263 kg Intake: IV 1000 928 Sodium Chloride 0.9% 1,000 ml @ 1000 928 100 mls/hr IV .Q10H [facility] Rx#: [id number] Oral 0 Output: Void Amount 975 650 Other: Urine Appearance Clear Clear Urine Color Dark Yellow [place] Urine Odor Normal # Voids 2 Exam: General: Alert, Awake, No acute Distress Eyes/N/T: EOMI, Head/Neck: neck supple, CV: RRR, No murmurs, normal s1/s2 Pulm: Clear b/l, no wheezing/rhonchi/rales Abd: soft, nontender, +BS x4 Ext: no clubbing/cyanosis/edema Neuro: Alert, no focal deficits, moves all extremities, Skin: warm/dry OBJ DATA Labs CBC & Chem 7: 07/04/20 05:20 07/04/20 05:20 Labs: Abnormal Lab Results 07/04/20 07/03/20 07/03/20 05:20 05:05 05:00 RBC 4.57 L Hgb 13.4 L Hct 38.6 L MPV 10.8 H Chloride 109 H Carbon Dioxide 21 L Calcium 8.0 L ALT 44 H Alkaline Phosphatase 36 L C-Reactive Protein Total Protein 5.7 L HDL Cholesterol 24 L Lipase 277 H 07/02/20 07/02/20 19:40 19:40 RBC Hgb Hct MPV 10.5 H Chloride Carbon Dioxide Calcium ALT Alkaline Phosphatase C-Reactive Protein 1.0 H Total Protein HDL Cholesterol Lipase 227 H Meds: Medications Atorvastatin Calcium (Lipitor) 10 mg PO DAILY [facility] Last Admin: 07/03/20 09:55 Dose: Not Given Documented by: Enoxaparin Sodium (Lovenox) 40 mg SQ DAILY [facility] Last Admin: 07/03/20 09:56 Dose: 40 mg Documented by: Famotidine (Pepcid) 20 mg PO HS [facility] Last Admin: 07/03/20 20:32 Dose: Not Given Documented by: Hydromorphone HCl (Dilaudid) 0.5 - 1 mg IV Q2HP PRN; Protocol PRN Reason: Per Pain Protocol Last Admin: 07/04/20 02:03 Dose: 0.5 mg Documented by: Sodium Chloride (Sodium Chloride 0.9%) 1,000 mls @ 100 mls/hr IV .Q10H [facility] Last Admin: 07/04/20 05:48 Dose: 100 mls/hr Documented by: Lisinopril (Zestril) 40 mg PO DAILY [facility] Last Admin: 07/03/20 09:53 Dose: 40 mg Documented by: Ondansetron HCl (Zofran) 4 mg IV Q6HP PRN PRN Reason: Nausea And Vomiting Last Admin: 07/03/20 10:17 Dose: 4 mg Documented by: Sodium Chloride (Saline Flush) 10 ml IV Q8 [facility] Last Admin: 07/04/20 05:47 Dose: Not Given Documented by: Tramadol HCl (Ultram) 50 mg PO Q6HP PRN; Protocol PRN Reason: Pain Last Admin: 07/03/20 14:55 Dose: 50 mg Documented by: A/P Narrative A/P Narrative: A: *Acute pancreatitis: Etiology unknown, smoking a risk factor. prilosec class 1b risk -GB unremarkable, denies recent etoh -CT with pancreatitis, no necrosis or hemorrhage or cyst Denies regularly drinking alcohol, no gallstone. -calcium/trig ok *Volume depletion: 2/2 above *Acute gastroenteritis: -C diff negative/Stool culture *HTN: home meds lisinopril 40 mg daily & HCTZ *Tobacco dependence: *GERD: P: -IVF decrease and start clears, advance to low fat as tolerated -Pain meds -Continue home lisinopril, hold HCTZ -change omeprazole to famotidine -Smoking cessation counseling, Nicotine patch if necessary - -ppx: Lovenox CODE STATUS: Bean Weigher Spent With Patient Time: Total time spent is greater than 50% in coordination of care (as documented) at patient's floor/unit and/or counseling patient: QUALITY Stroke Symptom Onset Unknown: No VTE Deep Vein Thrombosis/Pulmonary Embolism Present on Admission: No
[2020-07-04 07:50] LABS: ALT/SGPT 35 U/l (0-40); AST/SGOT 14 U/l (0-37); Albumin 3.5 gm/dL (3.2-5.2); Albumin/Globulin Ratio 1.5 (1.0-2.3); Alkaline Phosphatase 39 U/L (39-117); Bilirubin,Direct < 0.2 mg/dL (0.0-0.3); Bilirubin,Total 0.4 mg/dL (0.0-1.0); Blood Urea Nitrogen 9 mg/dl (6-20); Calcium 8.9 mg/dl (8.6-10.4); Carbon Dioxide 23 mmol/L (22-30); Chloride 106 mmol/L (96-108); Globulin 2.3 gm/dL (2.2-3.7); Glomerular Filtration Rate 108; Glucose 83 mg/dL (70-105); Lactate Dehydrogenase 143 U/L (94-250); Phosphorous 2.4 mg/dL (2.7-4.5); Triglycerides 103 mg/dl (<150); Uric Acid 7.9 mg/dL (2.5-8.0)
[2020-07-04] MEDS ORDERED: POTASSIUM PHOSPHATE 40 MEQ in DEXTROSE 5% IN WATER 500 ML IV ONE (08:15)
[2020-07-04] MEDS ORDERED: 0.9 % SODIUM CHLORIDE 1,000 ML IV SCH (08:52)
[2020-07-04] MEDS: LISINOPRIL 20 MG TABLET PO SCH (10:06)
[2020-07-04] MEDS: ATORVASTATIN 10 MG TABLET PO SCH (10:06)
[2020-07-04] MEDS: ENOXAPARIN 40 MG/0.4 ML SYRINGE SQ SCH (10:07)
--- NOTE | 2020-07-04 10:52 | Discharge Summary ---
Discharge Provider Provider Patient information: Note initiated : 07/04/20 at 10:50 am Service Date, if different from initiated Date: [] Patient: Jeremy Paul 44 y/o M admitted on 07/02/20 for Generalized Abdominal Pain. Chief Complaint: [] Date of admission: 07/02/20 23:38 Discharge date: 07/04/20 Primary care physician: PCP No Consults: 07/02/20 Consult to Physician [CONS] Stat Comment: Consulting Provider: Anma Contreras Reason For Exam: Physician to Consult Discharge Meds Discharge Medications Home Medications atorvastatin 10 mg PO DAILY 07/01/20 [History Confirmed 07/03/20 Last Taken 07/02/20 05:30] cetirizine 10 mg PO DAILY 07/01/20 [History Confirmed 07/03/20 Last Taken 07/02/20 05:30] gabapentin 300 mg capsule 300 mg PO QDAY PRN 07/01/20 [History Confirmed 07/03/20 Last Taken 05/21/20 19:00] hydrochlorothiazide 25 mg PO DAILY 07/01/20 [History Confirmed 07/03/20 Last Taken 07/02/20 05:30] lisinopril 40 mg PO DAILY 07/01/20 [History Confirmed 07/03/20 Last Taken 07/02/20 05:30] omeprazole 20 mg capsule,delayed release 20 mg PO QDAY 07/01/20 [History Confirmed 07/03/20 Last Taken 07/02/20 05:30] oxycodone [Roxicodone] 5 mg PO Q4H PRN #20 tab 07/01/20 [Rx Confirmed 07/03/20 Last Taken 07/02/20 15:30] COURSE Hospital Course Hospital course: History of present illness: Mr. Paul is a 44 year old M with a past medical history of hypertension and current smoker who presented to the ER due to abdominal pain for 2 days. As per patient, patient started to have abdominal pain yesterday morning associated with nausea and vomiting. Patient went to the ER yesterday evening. Lipase was 248. CT abdomen showed mild pancreatitis. He was advised to drink more fluid and discharged home with pain medication. His abdominal pain was initially improved. However, his abdominal pain is becoming worse today. The pain is mainly located to epigastric area, constant and 9 out of 10. So he went back to the ER this evening. Lipase 227 today. When I saw this patient in the ER, other than the symptoms mentioned above, he also complains of having diarrhea for 9 days. He has about 20 bowel movements a day with watery stool. Did not see blood in the stool. Otherwise patient denies chest pain, shortness breath, fever, chills, or dysuria. 07/03 Today pt complains of more abdominal pain. still has N/V/D which seems to be the same as they were yesterday. Vital signs are stable. C diff negative Repeat CT abd and increased pain meds. 07/04 Doing better today. Hungry. No new complaints. Abdominal pain improved. Patient tolerating liquid diet well and wanting to go home. A: *Acute pancreatitis: Etiology unknown, smoking a risk factor. prilosec class 1b risk -GB unremarkable, denies recent etoh -CT with pancreatitis, no necrosis or hemorrhage or cyst Denies regularly drinking alcohol, no gallstone. -calcium/trig ok *Volume depletion: 11/03 above *Acute gastroenteritis: -C diff negative/Stool culture *HTN: home meds lisinopril 40 mg daily & HCTZ *Tobacco dependence: *GERD: Discharge diagnosis: Acute pancreatitis gastroenteritis among depletion Secondary discharge diagnosis: Hypertension tobacco dependence GERD Time Spent with Patient Time attestation: Total time spent providing and/or coordinating discharge services: Time spent: Greater than 30 minutes EXAM Constitutional Vitals: Temp Pulse Resp BP Pulse Ox 99.4 F H 80 20 122/78 95 07/04/20 06:47 07/04/20 06:47 07/04/20 06:47 07/04/20 06:47 07/04/20 07:52 Discharge Data Data Completed and Pending Labs on day of discharge: Labs from last 24 hours 07/04/20 07/04/20 07/04/20 05:20 05:20 05:20 WBC 7.3 RBC 4.57 L Hgb 13.4 L Hct 38.6 L MCV 84.5 MCH 29.3 MCHC 34.7 RDW 13.0 Plt Count 192 MPV 10.4 Gran % 60.7 Lymph % (Auto) 27.7 Bucks % (Auto) 9.7 Eos % (Auto) 1.5 Baso % (Auto) 0.4 Gran # 4.46 Lymph # (Auto) 2.03 Bucks # (Auto) 0.71 Eos # (Auto) 0.11 Baso # (Auto) 0.03 Sodium 141 Potassium 3.0 L Chloride 106 Carbon Dioxide 23 Anion Gap 12.0 BUN 9 Creatinine 0.8 GFR Calculation 108 Glucose 83 Uric Acid 7.9 Calcium 8.9 Phosphorus 2.4 L Magnesium 2.0 Total Bilirubin 0.4 Direct Bilirubin < 0.2 GGT 33 AST 14 ALT 35 Alkaline Phosphatase 39 Lactate Dehydrogenase 143 NT-Pro-B Natriuret Pep Total Protein 5.8 L Albumin 3.5 Globulin 2.3 Albumin/Globulin Ratio 1.5 Triglycerides 103 Cholesterol LDL Cholesterol, Calc Non-HDL Cholesterol HDL Cholesterol Lipase 145 H 07/03/20 07/03/20 07/03/20 05:05 05:00 05:00 WBC 7.9 RBC 4.75 Hgb 14.1 Hct 41.5 MCV 87.4 MCH 29.7 MCHC 34.0 RDW 13.9 Plt Count 200 MPV 10.8 H Gran % 53.8 Lymph % (Auto) 33.6 Bucks % (Auto) 10.2 Eos % (Auto) 1.9 Baso % (Auto) 0.5 Gran # 4.24 Lymph # (Auto) 2.65 Bucks # (Auto) 0.80 Eos # (Auto) 0.15 Baso # (Auto) 0.04 Sodium 142 Potassium 3.6 Chloride 109 H Carbon Dioxide 21 L Anion Gap 12.0 BUN 10 Creatinine 0.8 GFR Calculation 108 Glucose 86 Uric Acid Calcium 8.0 L Phosphorus Magnesium Total Bilirubin 0.4 Direct Bilirubin GGT AST 27 ALT 44 H Alkaline Phosphatase 36 L Lactate Dehydrogenase 171 NT-Pro-B Natriuret Pep 75.3 Total Protein 5.7 L Albumin 3.4 Globulin 2.3 Albumin/Globulin Ratio 1.5 Triglycerides 93 Cholesterol 99 LDL Cholesterol, Calc 57 Non-HDL Cholesterol 75 HDL Cholesterol 24 L Lipase 277 H Discharge Plan Patient/Caregiver Discharge Instructions Activity: increase activity as tolerated Diet: Low Fat Activity Restrictions/Additional Instructions: DIET: advance from low fat full liquid to low fat diet as tolertated Abstain from alcohol and smoking Prescriptions: Continued omeprazole 20 mg capsule,delayed release(DR/EC) 20 mg PO QDAY RF: 0 gabapentin 300 mg capsule 300 mg PO QDAY PRN (Reason: Pain) RF: 0 cetirizine 10 mg tablet 10 mg PO DAILY RF: 0 atorvastatin 10 mg tablet 10 mg PO DAILY RF: 0 hydrochlorothiazide 25 mg tablet 25 mg PO DAILY RF: 0 lisinopril 40 mg tablet 40 mg PO DAILY RF: 0 oxycodone [Roxicodone] 5 mg tablet 5 mg PO Q4H PRN (Reason: pain) Qty: 20 RF: 0 Follow Up Plan Follow up with: No,PCP [Primary Care Provider] - Patient Disposition: Home, Self-Care Prognosis: Fair Discharge Orders: Discharge Order (Routine); Ordered 07/04/20 Ordered By: Thomas Tuttle [facility] VTE Deep Vein Thrombosis/Pulmonary Embolism Present on Admission: No
== END 2020-07-04 14:17 | disposition home or self-care (01) | DRG 440 ==
LOC: ED 17:47 → MEDSUR 23:38
PROVIDERS: ADMIT Internal Medicine; ATTEND Internal Medicine